=== PATIENT | female | born 1980 | race Caucasian/White ===

== ENCOUNTER → 2024-02-20 | Outpatient (CLI) | payer OTHER ==
[~2024-02-20] VITALS: Ht 162.6 cm; Wt 71.0 kg
[~2024-02-20] MED LIST: MULTI VITAMINS1 TAB PO
[2024-02-20 13:28] VITALS: BP 133/77; PULSE 66; TEMP 97.9
[2024-02-20 15:15] VITALS: BP 117/79; PULSE 81
== END ==
LOC: COL.RAD 13:06
DX: Z01.89 Encounter for other specified special examinations (principal); E04.1 Nontoxic single thyroid nodule